=== PATIENT | male | born 1970 | race Caucasian/White ===

== ENCOUNTER 2019-08-01 19:48 | Emergency (ER) | payer MEDICAID ==
[~2019-08-01] VITALS: Ht 182.9 cm; Wt 64.5 kg
[~2019-08-01 19:48] MED LIST: NO HOME MEDS
[2019-08-01 19:58] VITALS: BP 128/68
[2019-08-01] MEDS ORDERED: ALBU8HFA PO (20:22)
[2019-08-01] MEDS ORDERED: BENZ-16 PO (20:22)
== END 2019-08-01 20:50 | disposition home or self-care (01) ==
LOC: ER 19:48
DX: J06.9 Acute upper respiratory infection, unspecified (principal); J45.909 Unspecified asthma, uncomplicated; F15.90 Other stimulant use, unspecified, uncomplicated; Z59.0 Homelessness; Z98.890 Other specified postprocedural states
CPT/HCPCS: 99283

== ENCOUNTER 2019-08-05 11:36 | Emergency (ER) | payer MEDICAID ==
[~2019-08-05] VITALS: Ht 182.9 cm; Wt 61.4 kg
[~2019-08-05 11:36] MED LIST changes: +ALBU8HFA PO; +BENZ-16 PO
[2019-08-05] MEDS ORDERED: DOXY100C77 PO (12:30)
[2019-08-05 12:36] VITALS: BP 114/70
== END 2019-08-05 12:45 | disposition home or self-care (01) ==
LOC: ER 11:36
DX: L03.012 Cellulitis of left finger (principal); J45.909 Unspecified asthma, uncomplicated; F15.90 Other stimulant use, unspecified, uncomplicated; Z98.890 Other specified postprocedural states; Z60.2 Problems related to living alone; Z59.0 Homelessness
CPT/HCPCS: 99283

== ENCOUNTER 2019-08-14 14:25 | Emergency (ER) | payer MEDICAID ==
[~2019-08-14] VITALS: Ht 185.4 cm; Wt 64.5 kg
[~2019-08-14 14:25] MED LIST changes: -BENZ-16 PO
--- NOTE | 2019-08-14 14:40 | NUR ---
pt walked from main ER to room 23 in overflow by JOSE FRANCISCO TORREZ and bre, without incident, pt cooperative
[2019-08-14] MEDS ORDERED: LORazepam 1 MG tablet PO ONE ×3 (15:00→20:25)
--- NOTE | 2019-08-14 15:09 | NUR ---
Patient sitting up in bed calmly no signs of repiratory distress
[2019-08-14 15:20] LABS: CLARITY,URINE CLOUDY (Clear); COLOR,URINE YELLOW (Yellow); GLUCOSE, URINE NEGATIVE (Neg); KETONES,URINE TRACE mg/dl (Neg); LEUKOCYTE ESTERASE ,URINE NEGATIVE (Neg); NITRITES, URINE NEGATIVE (Neg); OCCULT BLOOD,URINE TRACE-INTACT (Neg); PH,URINE 7.5 (4.8-8.0); PROTEIN,URINE 100 mg/dl (Neg)
[2019-08-14 15:27] LABS: UA COLLECTION TYPE CLN CATCH MIDSTREAM
[2019-08-14 15:28] LABS: MUCUS STRANDS FEW /LPF (Neg); SQUAMOUS EPITHELIAL CELL,UR FEW /LPF (FEW)
[2019-08-14 15:29] LABS: AMORPHOUS PHOSPHATES 3+; BACTERIA,URINE FEW /HPF (Neg); RBC,URINE 0-2 /HPF (0-2); SPERM MANY /HPF (NEGATIVE); WBC,URINE 0-4 /HPF (0-4)
[2019-08-14 15:35] LABS: URINE AMPHETAMINE SCREEN POSITIVE (Neg); URINE BARBITUATE SCREEN NEGATIVE (Neg); URINE BENZODIAZEPINES SCREEN NEGATIVE (Neg); URINE CANNABINOID SCREEN NEGATIVE (Neg); URINE COCAINE SCREEN NEGATIVE (Neg); URINE METHADONE SCREEN NEGATIVE (Neg); URINE OPIATE SCREEN NEGATIVE (Neg); URINE PHENCYCLIDINE SCREEN NEGATIVE (Neg)
--- NOTE | 2019-08-14 16:04 | NUR ---
Laying down relaxing in bed
[2019-08-14 16:13] LABS: BASOPHILS # (AUTO) 0.1 X10'3 (0-0.2); BASOPHILS % (AUTO) 0.4 % (0-1); EOSINOPHILS % (AUTO) 0.1 % (0-6); HEMATOCRIT 38.5 % (42.0-52.0); LYMPHOCYTES # (AUTO) 1.9 X10'3 (1.1-4.8); LYMPHOCYTES % (AUTO) 14.2 % (21-51); MEAN CORPUSCULAR HEMOGLOBIN 30.2 PG (27.0-31.0); MEAN CORPUSCULAR HGB CONC 33.8 g/dL (33.0-36.5); MEAN CORPUSCULAR VOLUME 89.2 FL (78-98); MEAN PLATELET VOLUME 7.4 FL (7.4-10.4); MONOCYTES % (AUTO) 7.6 % (2-12); NEUTROPHILS # (AUTO) 10.4 X10'3 (1.8-7.7); NEUTROPHILS % (AUTO) 77.7 % (42-75); PLATELET COUNT 383 X10'3 (140-440); RED BLOOD COUNT 4.31 X10'6 (4.70-6.10); RED CELL DISTRIBUTION WIDTH 13.9 % (11.5-14.5); WHITE BLOOD COUNT 13.4 X10'3 (4.5-11.0)
[2019-08-14 16:24] LABS: ALANINE AMINOTRANSFERASE 32 U/L (12-78); ALBUMIN 4.3 G/DL (3.4-5.0); ALBUMIN/GLOBULIN RATIO 1.3 (1.1-1.5); ALKALINE PHOSPHATASE 60 IU/L (46-116); ANION GAP 11 (8-16); ASPARTATE AMINO TRANSFERASE 24 U/L (10-37); BILIRUBIN,TOTAL 0.9 MG/DL (0.1-1.0); CALCIUM 9.4 MG/DL (8.5-10.1); CHLORIDE 105 MMOL/L (99-107); CREATININE 1.07 MG/DL (0.60-1.10); ETHANOL < 0.010 GM/DL (0.0-0.010); GLUCOSE 110 MG/DL (70-104); POTASSIUM 3.3 MMOL/L (3.5-5.1); SODIUM 139 MMOL/L (135-145); TOTAL CARBON DIOXIDE 22.8 MMOL/L (24-32); TOTAL PROTEIN 7.6 G/DL (6.4-8.2); eGFR 74 ML/MIN
[2019-08-14 16:39] LABS: BLOOD UREA NITROGEN 10 MG/DL (7-18); BUN/CREATININE RATIO 9.3 (5.4-32.0)
--- NOTE | 2019-08-14 17:03 | NUR ---
resting in bed
--- NOTE | 2019-08-14 17:59 | NUR ---
Laying in bed
--- NOTE | 2019-08-14 18:39 | NUR ---
pt packet faxed to [facility]
[2019-08-14] MEDS ORDERED: OLANZapine 2.5MG tablet PO SCH (18:50)
--- NOTE | 2019-08-14 18:51 | NUR ---
Patient is oriented to person, place, and time. He exhibits anxiety and some paranoia. He has poor eye contact and is mildly delusional. Patient fidgets with his bedding and responds to some sort of interal stimuli. Patient denies S/I or H/I. This headline writer spoke with Dr. Paz. Orders received for Ativan 1mg PO and Zyprexa 5mg PO now. Both orders may be repeated once PRN agation. Patient states he has consumed alcohol, meth, and has not slept for nearly 24 hours.
--- NOTE | 2019-08-14 19:09 | NUR ---
Patient is medication compliant. Patient wants to perch on the head board of the bed. The patient is told this is not allowed. Patient exhibits understanding. He stands at bedside.
--- NOTE | 2019-08-14 20:01 | NUR ---
Patient was evaluated by [facility]. Patient cooperated with [facility] practisioner.
[2019-08-14] MEDS ORDERED: OLANZapine 2.5MG tablet PO ONE (20:25)
[2019-08-14] MEDS ORDERED: LORazepam 2 mg/ml vial IM ONE (22:15)
[2019-08-14] MEDS ORDERED: haloperidol lactate 5mg/ml inj IM ONE (22:15)
[2019-08-14] MEDS ORDERED: diphenhydrAMINE 50 mg/ml inj IM ONE (22:15)
--- NOTE | 2019-08-14 22:32 | NUR ---
Patient was sitting on the floor moaning and rubbing his legs, he trembles and is not verbalizing with this production underwriter. Patient exhibiting psychotic behavior. This production underwriter consulted with Dr. Luna, orders recieved for Benadryl 50mg IM, Ativan 2mg IM, and Haldol 10mg IM. All were given, the patient did nod yes when informed about getting Rx medications. The patient was compliant with medication administration. Patient is now on the bed laying on his right side. Patient will be closely observed for medication effectiveness.
--- NOTE | 2019-08-14 23:27 | NUR ---
Patient is now asleep. He is breathing quietly. Patient is in direct view from the nurses station.
--- NOTE | 2019-08-15 01:11 | NUR ---
Patient has awoken once again. Patient is agitated and delusional. Patient climbs out of bed and has his eyes closed. Two rails are up. Bed is locked in low position. Patient is wearing non slip socks. Patient is re-directed back to bed. He remains restless. This marketing underwriter will consult with FELICE BUCHANAN,
[2019-08-15] MEDS ORDERED: haloperidol lactate 5mg/ml inj IM ONE (01:25)
--- NOTE | 2019-08-15 03:04 | NUR ---
Patient is sleeping quietly, in view from the nursing station.
--- NOTE | 2019-08-15 04:13 | NUR ---
Patient is sleeping quietly in a supine position. Color is good. Patient is warm and dry.
[2019-08-15] MEDS ORDERED: potassium Cl 20 mEq SR tablet PO STA (05:06)
--- NOTE | 2019-08-15 06:15 | NUR ---
Patient is sleeping respirations even and unlabored
--- NOTE | 2019-08-15 07:09 | NUR ---
sleeping on left side
--- NOTE | 2019-08-15 08:00 | NUR ---
sleeping on back
--- NOTE | 2019-08-15 09:21 | NUR ---
sleeping on back
--- NOTE | 2019-08-15 11:00 | NUR ---
asleep on left side
--- NOTE | 2019-08-15 12:25 | NUR ---
sleeping on left side
--- NOTE | 2019-08-15 13:22 | NUR ---
sleeping laying on back
--- NOTE | 2019-08-15 16:23 | NUR ---
asleep laying on right side
--- NOTE | 2019-08-15 17:01 | NUR ---
sleeping on back
--- NOTE | 2019-08-15 18:20 | NUR ---
sleeping on side
--- NOTE | 2019-08-15 18:26 | NUR ---
Patient is sleeping quietly, in view from the nursing station.
--- NOTE | 2019-08-15 21:25 | NUR ---
Patient is awake now, eating dinner. Patient is calm and cooperative. Patlients thought process is becoming linear. Patient states his left leg is directing itself outward. On exam this presents as a mild dystonic reaction. Dr. Mccracken was consulted about this probable extrapyramidal reaction. An order was received for cogentin 1mg IM. Tis was given after explaining the treatment to the patient. Patient was compliant with taking the medication.
[2019-08-15] MEDS ORDERED: benztropine 1 mg/ml 2ml ampule IM ONE (21:45)
--- NOTE | 2019-08-15 22:21 | NUR ---
Patient is now resting quietly, extraparamital reactions have subsided. Patient is returning to sleep.
--- NOTE | 2019-08-16 00:17 | NUR ---
Patient is sleeping quietly in a supine position.
--- NOTE | 2019-08-16 01:52 | NUR ---
Patient is sleeping quietly in a supine position. In view from the nursing station.
--- NOTE | 2019-08-16 08:11 | NUR ---
pt woke up for breakfast. ate breakfast no med ordered. ambulated to bathroom with steady gate. mood stable no out bursts this morning so far
--- NOTE | 2019-08-16 09:32 | NUR ---
in bed resting seen walking to bathroom
--- NOTE | 2019-08-16 11:42 | NUR ---
pt complaining of still having some extraparamital side effects and would like some more cogention talked to dr pineda he ordered benadril and if that does not help he will order the cogetion
[2019-08-16] MEDS ORDERED: diphenhydrAMINE 25mg capsule PO ONE (11:45)
--- NOTE | 2019-08-16 12:05 | NUR ---
[facility] called and said they would be down at 1330 to bring him up to the floor
[2019-08-16 13:39] VITALS: BP 108/69
== END 2019-08-16 14:09 | disposition home or self-care (01) ==
LOC: ER 14:25
DX: F15.959 Other stimulant use, unspecified with stimulant-induced psychotic disorder, unspecified (principal); Z98.890 Other specified postprocedural states; Z60.2 Problems related to living alone; Z59.0 Homelessness; Z79.899 Other long term (current) drug therapy
CPT/HCPCS: 36415; 80053; 80305; 80320; 81001; 85025; 96372; 99285; J0515; J1200; J1630; J2060; Q0163

== ENCOUNTER 2019-08-16 11:21 | Inpatient (IN) | payer MEDICAID ==
[~2019-08-16] VITALS: Ht 182.9 cm; Wt 57.6 kg
[2019-08-16 14:10] VITALS: BP 108/69
[2019-08-16] MEDS ORDERED: mag hydrox/Alum hydrox/simeth 30ml oral suspension PO PRN (14:25)
[2019-08-16] MEDS ORDERED: magnesium hydroxide 30ml (MOM) UD suspension PO PRN (14:25)
[2019-08-16] MEDS ORDERED: hydrOXYzine 25 MG tablet PO PRN (14:25)
[2019-08-16] MEDS ORDERED: acetaminophen 325mg tablet PO PRN ×2 (14:25)
[2019-08-16] MEDS ORDERED: loperamide 2mg capsule PO PRN (14:25)
--- NOTE | 2019-08-16 17:13 | NUR ---
ADMISSION NOTE: Patient arrived on unit at 1410 from [facility] admitted at DTS/DTO. Was brought in on 5150 after being observed to have extreme agitation and paranoia stating he could see people hiding and trying to kill him. Was trespassing at a business and throwing rocks towards windows. Patient was positive for Meth and states he only experiences these paranoid thoughts when on Meth. Presents on unit as calm and cooperative. Denies any hallucinations. Is significantly underweight.
[2019-08-16 19:00] VITALS: BP 108/67
[2019-08-16] MEDS ORDERED: benztropine 1mg tablet PO PRN (20:05)
[2019-08-16] MEDS: quetiapine 100mg tablet PO PRN (20:47)
--- NOTE | 2019-08-17 00:34 | NUR ---
Nursing Progress Note: Legal hold: 5150 Client on involuntary status for DTS/DTO Report received from nurse with use of SBAR: JOSE FRANCISCO Nielsen Why are they here: Patient admitted on a 5150 for DTS/DTO. He was brought in by police after being observed to exhibit bizarre behaviors, and attempting to trespass at businesses. Pt. had also armed himself with rocks, and appeared to have extreme agitation and paranoia stating he could see people hiding and trying to kill him. Patient has a history of Bipolar D/O and schizophrenia, and was positive for Meth. He reports he only experiences these paranoid thoughts when on Meth. Pt. is significantly underweight. Assessment What has happened this shift: Pt. laying in bed at the beginning of the shift, and continues to isolate here throughout the shift. This marketing underwriter introduces self, pt. presents as agitated regarding the behavior of his roommate, states, "Can I have a different room?! He's driving me crazy! If he comes on my side of the room one more time, I will knock him out!" Pt's roommate removed from the room for safety, and pt. provided earplugs to minimize external stimuli, he was able to be successfully redirected. Pt. later requested Cogentin r/t "Jaw and left foot locking." It was noted by this marketing underwriter that he had received Cogentin in the ER last night, and pt. reported that it was effective. Obtained PRN order from TAM Garcia for PRN Cogentin BID, administered with effectiveness. 1:1 completed at bedside, pt. is cooperative with assessment, however presents as guarded and denies all mental health s/s. Pt. does not appear to be internally preoccupied, and no delusional statements made. He requests PRN Seroquel at , will continue to monitor. S/I, H/I: Denies A/VH: Denies, does not appear internally preoccupied Sleep: Pt. appears fatigued, appears to be sleeping well ADL's: Requires some direction from staff Group attendance: N/A Were meds taken: Yes Any med S/E: None Mental Status Exam Appearance: Pt. presents as disheveled and cachetic, however appropriately dressed Eye contact: Good Behavior: Cooperative, slightly agitated, guarded, and isolative Speech: Soft and minimal, becomes louder when agitated Mood: Guarded Affect: Constricted Thought process: Poverty of thought Thought Content: Agitation with roommate at the beginning of the shift, however able to be redirected Cognition: A&O X4 Insight: Poor Judgment: Poor Interventions PRN's used: Cogentin and Seroquel Therapeutic interventions: Introduced self and established rapport, ensured contract for safety, maintained a safe and therapeutic environment, provided clear and simple instructions, provided active listening and redirection as needed, monitored behaviors and obtained order for PRN Cogentin, and maintained Q 15 min safety checks. Restraints/seclusion/emergency medication: N/A Justification of Continued Inpatient Treatment: Pt. requires interruption of current crisis, medication adjustments, and a safe and therapeutic environment.
[2019-08-17 07:30] VITALS: BP 108/63
[2019-08-17 08:00] VITALS: BP 108/65
[2019-08-17 08:29] LABS: CHOLESTEROL 123 MG/DL (0-200); HDL CHOLESTEROL 61 MG/DL (35-60); LDL CHOLESTEROL 52 MG/DL (50-100); TRIGLYCERIDES 51 MG/DL (20-135)
[2019-08-17 08:59] LABS: HEMOGLOBIN A1C 5.7 % (4.5-6.2)
--- NOTE | 2019-08-17 10:32 | NUR ---
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 PO 75-100% avg first meals. Meeting needs. No nutrition concerns at this time. Will continue to monitor. Addendum: 08/17/19 at [address] Amended: Links added.
--- NOTE | 2019-08-17 15:58 | NUR ---
Nursing Progress Note: Jasvir Legal hold: 5150 Client on involuntary status for DTS/DTO Report received from JOSE FRANCISCO Cannon with use of SBAR Why are they here: Patient admitted on a 5150 for DTS/DTO. He was brought in by police after being observed to exhibit bizarre behaviors, and attempting to trespass at businesses. Pt. had also armed himself with rocks, and appeared to have extreme agitation and paranoia stating he could see people hiding and trying to kill him. Patient has a history of Bipolar D/O and schizophrenia, and was positive for Meth. He reports he only experiences these paranoid thoughts when on Meth. Pt. is significantly underweight. Assessment What has happened this shift: Patient lying in bed, awake, calm. States once it was quiet on the unit he slept well. Denies SI, hallucinations. Remains isolative in room. No medications ordered, none requested. Remained in room all morning. Continues to deny any symptoms of paranoia. Does not appear anxious or agitated. Remains in room after lunch, resting quietly. Became slightly anxious over potential discharge as he would need to notify the mission in order to have a bed. Decision made for patient to remain for now. Only out of room when wanting information regarding discharged, remains isolative. S/I, H/I: Denies A/VH: Denies, does not appear internally preoccupied Sleep: 8 ADL's: Requires some direction from staff Group attendance: No organized groups due to COVID 19 Were meds taken: Yes Any med S/E: None Mental Status Exam Appearance: Pt. presents as disheveled and cachetic, however appropriately dressed Eye contact: Good Behavior: Cooperative, slightly agitated, guarded, and isolative Speech: Soft and minimal, becomes louder when agitated Mood: Guarded Affect: Constricted Thought process: Poverty of thought Thought Content: Agitation with roommate at the beginning of the shift, however able to be redirected Cognition: A&O X4 Insight: Poor Judgment: Poor Interventions PRN's used: Cogentin and Seroquel Therapeutic interventions: Introduced self and established rapport, ensured contract for safety, maintained a safe and therapeutic environment, provided clear and simple instructions, provided active listening and redirection as needed, monitored behaviors and maintained Q 15 min safety checks. Restraints/seclusion/emergency medication: N/A Justification of Continued Inpatient Treatment: Pt. requires interruption of current crisis, medication adjustments, and a safe and therapeutic environment.
[2019-08-17] MEDS ORDERED: diphenhydrAMINE 25mg capsule PO PRN (18:45)
[2019-08-17 20:00] VITALS: BP 102/58
--- NOTE | 2019-08-17 23:30 | NUR ---
Nursing Progress Note: Jasvir Legal hold: 5150 Client on involuntary status for DTS/DTO Report received from JOSE FRANCISCO Nielsen with use of SBAR Why are they here: Patient admitted on a 5150 for DTS/DTO. He was brought in by police after being observed to exhibit bizarre behaviors, and attempting to trespass at businesses. Pt. had also armed himself with rocks, and appeared to have extreme agitation and paranoia stating he could see people hiding and trying to kill him. Patient has a history of Bipolar D/O and schizophrenia, and was positive for Meth. He reports he only experiences these paranoid thoughts when on Meth. Pt. is significantly underweight. Assessment What has happened this shift: Patient asleep at the start of the shift. Pt denies SI/HI and AH/VH. Pt did not get up for snack and has no medication ordered. Pt asked if he could return to sleep. S/I, H/I: Denies A/VH: Denies, does not appear internally preoccupied Sleep: 8 ADL's: Requires some direction from staff Group attendance: No organized groups due to COVID 19 Were meds taken: Any med S/E: None Mental Status Exam Appearance: Pt. presents as disheveled and cachetic, however appropriately dressed Eye contact: Good Behavior: Cooperative, slightly agitated, guarded, and isolative Speech: Soft and minimal, becomes louder when agitated Mood: Guarded Affect: Constricted Thought process: Poverty of thought Thought Content: Agitation with roommate at the beginning of the shift, however able to be redirected Cognition: A&O X4 Insight: Poor Judgment: Poor Interventions PRN's used: none Therapeutic interventions: Introduced self and established rapport, ensured contract for safety, maintained a safe and therapeutic environment, provided clear and simple instructions, provided active listening and redirection as needed, monitored behaviors and maintained Q 15 min safety checks. Restraints/seclusion/emergency medication: N/A Justification of Continued Inpatient Treatment: Pt. requires interruption of current crisis, medication adjustments, and a safe and therapeutic environment. Addendum: 08/18/19 at 0021 by Chris Sinha RN JAMES Shahid @ 0020
[2019-08-18] MEDS: quetiapine 100mg tablet PO PRN ×2 (00:19→09:54)
[2019-08-18 08:00] VITALS: BP 112/63
--- NOTE | 2019-08-18 12:08 | NUR ---
Discharge Note: Patient denies paranoia and suicidal ideation. Patient states it's the meth that makes him "like that." Patient received discharge instructions and verbalized understanding but refused to receive a copy of them. Patient did not need tobacco replacement. Patient does not have any wounds. Patient was here for less than 3 days and does not need a repeat MRSA. Patient was very happy to leave and does not want to take medication and stated he was going to continue to do meth. Patient ambulatory, steady gait downstairs to Main Lobby with [employer] [facility]. Patient has all his belongings. Patient taking a taxi on [facility] to [facility].
== END 2019-08-18 12:10 | disposition short-term general hospital (02) | DRG 776 ==
LOC: ADULT MH 11:21
PROVIDERS: ADMIT Psychiatry & Neurology Psychiatry; ATTEND Psychiatry & Neurology Psychiatry
DX: F15.959 Other stimulant use, unspecified with stimulant-induced psychotic disorder, unspecified (principal); F39 Unspecified mood [affective] disorder; J45.909 Unspecified asthma, uncomplicated; Z59.0 Homelessness; Z87.11 Personal history of peptic ulcer disease; Z90.49 Acquired absence of other specified parts of digestive tract; Z71.51 Drug abuse counseling and surveillance of drug abuser
CPT/HCPCS: 36415; 80061; 83036; 87081; 99285

== ENCOUNTER 2019-08-20 17:20 | Emergency (ER) | payer MEDICAID ==
[~2019-08-20] VITALS: Ht 182.9 cm; Wt 60.0 kg
[2019-08-20 17:21] VITALS: BP 133/87
[2019-08-20] MEDS ORDERED: ALBU18HF2 INH (17:53)
== END 2019-08-20 18:19 | disposition home or self-care (01) ==
LOC: ER 17:20
DX: J45.901 Unspecified asthma with (acute) exacerbation (principal); F15.90 Other stimulant use, unspecified, uncomplicated; Z98.890 Other specified postprocedural states; Z59.0 Homelessness
CPT/HCPCS: 99283

== ENCOUNTER 2019-11-07 11:37 | Emergency (ER) | payer MEDICAID ==
[~2019-11-07] VITALS: Ht 182.9 cm; Wt 63.6 kg
[~2019-11-07 11:37] MED LIST changes: +ALBU18HF2 INH; -ALBU8HFA PO; -NO HOME MEDS
[2019-11-07] MEDS ORDERED: diphenhydrAMINE 50 mg/ml inj IM ONE (12:00)
[2019-11-07] MEDS ORDERED: haloperidol lactate 5mg/ml inj IM ONE (12:00)
[2019-11-07] MEDS ORDERED: LORazepam 2 mg/ml vial IM ONE (12:00)
[2019-11-07] MEDS ORDERED: normal saline 1000ML IV soln IVB ONE ×2 (12:05→13:55)
--- NOTE | 2019-11-07 12:10 | NUR ---
[employer] offices Ramana (#[id number]) and Odalis (#[id number]) transported pt from [facility], where 5150 was written. Covid being sought d/t high risk area w/ high possible exposure to Covid positive pts, has low grade fever and RLL rhales. GUILHERME Willett will contact Infectious Jennifer Tipton.
--- NOTE | 2019-11-07 12:30 | NUR ---
[facility] staff exposed to pt include: Security (Asa Santizo,Patrice, Eduardo), ED (Jhoana Cid, Analy), Lab (Rylee)
[2019-11-07 12:46] LABS: BASOPHILS % (AUTO) 0.3 % (0-1); EOSINOPHILS % (AUTO) 0 % (0-6); HEMATOCRIT 35.4 % (42.0-52.0); HEMOGLOBIN 11.9 g/dl (14.0-17.9); LYMPHOCYTES # (AUTO) 0.8 X10'3 (1.1-4.8); LYMPHOCYTES % (AUTO) 6.6 % (21-51); MEAN CORPUSCULAR HEMOGLOBIN 30.5 PG (27.0-31.0); MEAN CORPUSCULAR HGB CONC 33.5 g/dL (33.0-36.5); MEAN PLATELET VOLUME 7.6 FL (7.4-10.4); MONOCYTES # (AUTO) 0.8 X10'3 (0-0.9); MONOCYTES % (AUTO) 6.8 % (2-12); NEUTROPHILS # (AUTO) 9.9 X10'3 (1.8-7.7); NEUTROPHILS % (AUTO) 86.3 % (42-75); PLATELET COUNT 356 X10'3 (140-440); RED BLOOD COUNT 3.89 X10'6 (4.70-6.10); RED CELL DISTRIBUTION WIDTH 14.2 % (11.5-14.5); WHITE BLOOD COUNT 11.5 X10'3 (4.5-11.0)
[2019-11-07 13:06] LABS: ALANINE AMINOTRANSFERASE 45 U/L (12-78); ALBUMIN 4.3 G/DL (3.4-5.0); ALBUMIN/GLOBULIN RATIO 1.2 (1.1-1.5); ALKALINE PHOSPHATASE 86 IU/L (46-116); ANION GAP 12 (8-16); ASPARTATE AMINO TRANSFERASE 27 U/L (10-37); BILIRUBIN,TOTAL 0.3 MG/DL (0.1-1.0); BLOOD UREA NITROGEN 15 MG/DL (7-18); BUN/CREATININE RATIO 10.6 (5.4-32.0); CALCIUM 8.9 MG/DL (8.5-10.1); CHLORIDE 108 MMOL/L (99-107); CREATININE 1.41 MG/DL (0.60-1.10); GLUCOSE 123 MG/DL (70-104); POTASSIUM 3.5 MMOL/L (3.5-5.1); SODIUM 144 MMOL/L (135-145); TOTAL CARBON DIOXIDE 23.9 MMOL/L (24-32); TOTAL PROTEIN 7.9 G/DL (6.4-8.2); eGFR 54 ML/MIN
[2019-11-07 13:16] LABS: CKMB RELATIVE INDEX 0.8 RATIO (0-2.5); CREATINE KINASE 492 U/L (39-308)
[2019-11-07 13:28] LABS: ETHANOL < 0.010 GM/DL (0.0-0.010)
[2019-11-07 14:14] LABS: CLARITY,URINE CLEAR (Clear); COLOR,URINE YELLOW (Yellow); GLUCOSE, URINE NEGATIVE (Neg); KETONES,URINE NEGATIVE (Neg); LEUKOCYTE ESTERASE ,URINE NEGATIVE (Neg); NITRITES, URINE NEGATIVE (Neg); OCCULT BLOOD,URINE TRACE-INTACT (Neg); PH,URINE 6.5 (4.8-8.0); PROTEIN,URINE 30 mg/dl (Neg); UROBILINOGEN,URINE 0.2 E.U/dL (0.2-1.0)
[2019-11-07 14:18] LABS: UA COLLECTION TYPE URINAL
[2019-11-07 14:19] LABS: BACTERIA,URINE NONE SEEN /HPF (Neg); MUCUS STRANDS FEW /LPF (Neg); RBC,URINE 0-2 /HPF (0-2); SPERM MODERATE /HPF (NEGATIVE); SQUAMOUS EPITHELIAL CELL,UR NONE SEEN /LPF (FEW); WBC,URINE 0-4 /HPF (0-4)
--- NOTE | 2019-11-07 14:28 | NUR ---
Partial restraint removal: LUE and RLE released.
[2019-11-07 14:36] LABS: URINE AMPHETAMINE SCREEN POSITIVE (Neg); URINE BARBITUATE SCREEN POSITIVE (Neg); URINE BENZODIAZEPINES SCREEN NEGATIVE (Neg); URINE CANNABINOID SCREEN NEGATIVE (Neg); URINE COCAINE SCREEN NEGATIVE (Neg); URINE METHADONE SCREEN NEGATIVE (Neg); URINE OPIATE SCREEN NEGATIVE (Neg); URINE PHENCYCLIDINE SCREEN NEGATIVE (Neg)
--- NOTE | 2019-11-07 15:14 | NUR ---
balance of soft restraints removed: RUE and LLE as pt able to follow instructions and has been calm. pt resting quietly reports "feeling better and not hearing things as much."
--- NOTE | 2019-11-07 18:47 | NUR ---
IV d/c and noticed he has skin abrasions to his right wrist/forearm area. 3cm x 1 cm area covered with bacitracin and a 2x2 and coban and a smaller one about 1cm x 1/2 cm, placed bacitracin and a bandaide on that one. The pt is AOx4. He said he feels way better. He got up and out of bed and ambulated to overflow without any problems. He wore his mask. I informed him that his covid test came back negative but he has to wear the mask to protect himself. He understood.
--- NOTE | 2019-11-07 18:54 | NUR ---
pt moved to bed 26 in overflow.
[2019-11-07] MEDS ORDERED: MIRT45TA79 PO (19:14)
--- NOTE | 2019-11-07 19:49 | NUR ---
pt is being evaluated by [facility]
--- NOTE | 2019-11-07 22:11 | NUR ---
Pt is sleeping, no s/s of distress noted.
--- NOTE | 2019-11-08 02:43 | NUR ---
Pt is sleeping, no s/s of distress noted.
--- NOTE | 2019-11-08 07:00 | NUR ---
asleep no resp issues
--- NOTE | 2019-11-08 08:00 | NUR ---
asleep no resp issues
--- NOTE | 2019-11-08 09:01 | NUR ---
resting in bed
--- NOTE | 2019-11-08 10:00 | NUR ---
asleep no resp issues
--- NOTE | 2019-11-08 12:04 | NUR ---
asleep no resp issues
--- NOTE | 2019-11-08 13:12 | NUR ---
relieving RN for break, pt is resting quietly on gurney
--- NOTE | 2019-11-08 13:25 | NUR ---
sitting on side of bed
--- NOTE | 2019-11-08 14:00 | NUR ---
sleeping no resp distress
--- NOTE | 2019-11-08 16:04 | NUR ---
resting in bed
[2019-11-08 16:26] VITALS: BP 130/64
[2019-11-08] MEDS ORDERED: mirtazapine 15mg tablet PO SCH (21:00)
== END 2019-11-08 16:47 | disposition home or self-care (01) ==
LOC: ER 11:37
DX: F29 Unspecified psychosis not due to a substance or known physiological condition (principal); R41.0 Disorientation, unspecified; E87.2 Acidosis; N28.9 Disorder of kidney and ureter, unspecified; F15.10 Other stimulant abuse, uncomplicated; J45.909 Unspecified asthma, uncomplicated; Z98.890 Other specified postprocedural states; Z60.2 Problems related to living alone; Z59.0 Homelessness; Z79.899 Other long term (current) drug therapy
CPT/HCPCS: 36415; 70450; 71045; 80053; 80305; 80320; 81001; 82550; 82553; 83605; 84145; 84443; 85025; 87040; 87635; 93005; 96360; 96361; 96372; 99285; C9803; J1200; J1630; J2060; J7030

== ENCOUNTER 2019-12-04 21:01 | Emergency (ER) | payer MEDICAID ==
[~2019-12-04] VITALS: Ht 182.9 cm; Wt 64.5 kg
[~2019-12-04 21:01] MED LIST changes: -ALBU18HF2 INH; +MIRT45TA79 PO
[2019-12-04 21:55] LABS: BASOPHILS % (AUTO) 0.4 % (0-1); EOSINOPHILS % (AUTO) 0.1 % (0-6); HEMATOCRIT 36.5 % (42.0-52.0); HEMOGLOBIN 12.5 g/dl (14.0-17.9); LYMPHOCYTES # (AUTO) 1.8 X10'3 (1.1-4.8); LYMPHOCYTES % (AUTO) 18.1 % (21-51); MEAN CORPUSCULAR HEMOGLOBIN 31.2 PG (27.0-31.0); MEAN CORPUSCULAR HGB CONC 34.2 g/dL (33.0-36.5); MEAN CORPUSCULAR VOLUME 91.2 FL (78-98); MEAN PLATELET VOLUME 7.8 FL (7.4-10.4); MONOCYTES % (AUTO) 9.7 % (2-12); NEUTROPHILS % (AUTO) 71.7 % (42-75); PLATELET COUNT 364 X10'3 (140-440); RED BLOOD COUNT 4.01 X10'6 (4.70-6.10); RED CELL DISTRIBUTION WIDTH 13.5 % (11.5-14.5); WHITE BLOOD COUNT 9.8 X10'3 (4.5-11.0)
[2019-12-04 22:07] LABS: ALANINE AMINOTRANSFERASE 32 U/L (12-78); ALBUMIN 4.3 G/DL (3.4-5.0); ALBUMIN/GLOBULIN RATIO 1.2 (1.1-1.5); ALKALINE PHOSPHATASE 89 IU/L (46-116); ANION GAP 13 (8-16); ASPARTATE AMINO TRANSFERASE 20 U/L (10-37); BILIRUBIN,TOTAL 0.4 MG/DL (0.1-1.0); BLOOD UREA NITROGEN 13 MG/DL (7-18); BUN/CREATININE RATIO 12.3 (5.4-32.0); CHLORIDE 104 MMOL/L (99-107); CREATININE 1.06 MG/DL (0.60-1.10); GLUCOSE 131 MG/DL (70-104); POTASSIUM 3.6 MMOL/L (3.5-5.1); SODIUM 141 MMOL/L (135-145); TOTAL CARBON DIOXIDE 24.4 MMOL/L (24-32); eGFR 75 ML/MIN
[2019-12-04 22:09] LABS: ETHANOL < 0.010 GM/DL (0.0-0.010)
[2019-12-04 22:12] LABS: URINE AMPHETAMINE SCREEN POSITIVE (Neg); URINE BARBITUATE SCREEN NEGATIVE (Neg); URINE BENZODIAZEPINES SCREEN NEGATIVE (Neg); URINE CANNABINOID SCREEN NEGATIVE (Neg); URINE COCAINE SCREEN NEGATIVE (Neg); URINE METHADONE SCREEN NEGATIVE (Neg); URINE OPIATE SCREEN NEGATIVE (Neg); URINE PHENCYCLIDINE SCREEN NEGATIVE (Neg)
[2019-12-04] MEDS ORDERED: MIRT45TA83 PO (22:41)
[2019-12-04] MEDS ORDERED: SERT-153 PO (22:42)
--- NOTE | 2019-12-04 23:07 | NUR ---
pt moved to overflow bed 22. pt was able to ambulate independently with a steady gait.
--- NOTE | 2019-12-05 01:09 | NUR ---
pt is lying in bed staring at the ceiling. no needs at this time
--- NOTE | 2019-12-05 02:40 | NUR ---
pt continues to lie in bed staring at the ceiling. pt appears paranoid
--- NOTE | 2019-12-05 03:24 | NUR ---
pt is sitting on the floor in the corner by his bed. when asked if he is alright, pt responded "I'm just bored." Pt denies any complaints.
--- NOTE | 2019-12-05 04:51 | NUR ---
Pt is sitting on his bed now, eyes open. pt denies having any complaints.
[2019-12-05] MEDS ORDERED: sertraline 50mg tablet PO SCH (08:00)
--- NOTE | 2019-12-05 09:00 | NUR ---
resting in bed
--- NOTE | 2019-12-05 10:00 | NUR ---
getting ready for DC
[2019-12-05 10:14] VITALS: BP 144/98
[2019-12-05] MEDS ORDERED: mirtazapine 15mg tablet PO SCH (21:00)
== END 2019-12-05 10:17 | disposition home or self-care (01) ==
LOC: ER 21:02
DX: R45.851 Suicidal ideations (principal); F15.10 Other stimulant abuse, uncomplicated; J45.909 Unspecified asthma, uncomplicated; F32.9 Major depressive disorder, single episode, unspecified; Z98.890 Other specified postprocedural states; Z59.0 Homelessness; Z60.2 Problems related to living alone; Z72.89 Other problems related to lifestyle; Z79.899 Other long term (current) drug therapy
CPT/HCPCS: 36415; 80053; 80305; 80320; 85025; 99285

== ENCOUNTER 2019-12-13 10:52 | Observation (INO) | payer MEDICAID ==
[~2019-12-13] VITALS: Ht 182.9 cm; Wt 64.5 kg
[~2019-12-13 10:52] MED LIST changes: -MIRT45TA79 PO; +MIRT45TA83 PO; +SERT-153 PO
[2019-12-13 11:30] LABS: BASOPHILS % (AUTO) 0.3 % (0-1); EOSINOPHILS % (AUTO) 0.1 % (0-6); HEMATOCRIT 35.2 % (42.0-52.0); HEMOGLOBIN 12.1 g/dl (14.0-17.9); MEAN CORPUSCULAR HEMOGLOBIN 30.6 PG (27.0-31.0); MEAN CORPUSCULAR HGB CONC 34.3 g/dL (33.0-36.5); MEAN CORPUSCULAR VOLUME 89.1 FL (78-98); MEAN PLATELET VOLUME 7.6 FL (7.4-10.4); MONOCYTES # (AUTO) 1.2 X10'3 (0-0.9); MONOCYTES % (AUTO) 10.4 % (2-12); NEUTROPHILS # (AUTO) 8.4 X10'3 (1.8-7.7); NEUTROPHILS % (AUTO) 72.2 % (42-75); PLATELET COUNT 349 X10'3 (140-440); RED BLOOD COUNT 3.95 X10'6 (4.70-6.10); RED CELL DISTRIBUTION WIDTH 13.4 % (11.5-14.5); WHITE BLOOD COUNT 11.7 X10'3 (4.5-11.0)
[2019-12-13 11:50] LABS: ALANINE AMINOTRANSFERASE 38 U/L (12-78); ALBUMIN/GLOBULIN RATIO 1.3 (1.1-1.5); ALKALINE PHOSPHATASE 79 IU/L (46-116); ANION GAP 19 (8-16); ASPARTATE AMINO TRANSFERASE 45 U/L (10-37); BILIRUBIN,TOTAL 1.1 MG/DL (0.1-1.0); BLOOD UREA NITROGEN 28 MG/DL (7-18); BUN/CREATININE RATIO 15.6 (5.4-32.0); CALCIUM 9.6 MG/DL (8.5-10.1); CHLORIDE 98 MMOL/L (99-107); CREATININE 1.79 MG/DL (0.60-1.10); GLUCOSE 89 MG/DL (70-104); POTASSIUM 3.1 MMOL/L (3.5-5.1); SODIUM 134 MMOL/L (135-145); TOTAL CARBON DIOXIDE 16.6 MMOL/L (24-32); eGFR 41 ML/MIN
[2019-12-13] MEDS ORDERED: normal saline 1000ML IV soln IVB ONE ×2 (12:50→14:15)
[2019-12-13] MEDS ORDERED: potassium Cl 20 mEq SR tablet PO STA (12:50)
[2019-12-13] MEDS: normal saline 1000ml 1,000 ML IV SCH ×2 (14:29→23:30)
[2019-12-13] MEDS ORDERED: ondansetron/PF 4mg/2ml inj IV PRN (14:30)
[2019-12-13] MEDS ORDERED: potassium CL 10mEq/100ml bag 100 ML IV PRN ×2 (14:30)
[2019-12-13] MEDS ORDERED: morphine 2 MG/ML inj. syringe IV PRN (14:30)
[2019-12-13] MEDS ORDERED: acetaminophen 325mg tablet PO PRN (14:30)
[2019-12-13] MEDS ORDERED: magnesium 2GM in 50ml NS 50 ML IV PRN (14:30)
[2019-12-13] MEDS ORDERED: magnesium Cl slow-release 64mg tablet PO PRN (14:30)
[2019-12-13] MEDS ORDERED: HYDROcodone/acetaminophen 5mg/325mg tablet PO PRN (14:30)
[2019-12-13] MEDS ORDERED: docusate sod 100mg capsule PO PRN (14:30)
[2019-12-13] MEDS ORDERED: potassium Cl 20 mEq SR tablet PO PRN ×2 (14:30)
[2019-12-13] MEDS ORDERED: magnesium 4gm in 100ml NS 100 ML IV PRN (14:30)
[2019-12-13 15:15] LABS: CREATINE KINASE 1361 U/L (39-308)
[2019-12-13 15:45] VITALS: BP 109/58
[2019-12-13 18:00] VITALS: BP 98/54
--- NOTE | 2019-12-13 18:34 | NUR ---
Patient in room ORTHO 4011. I have received report from Ciara FELTON and had the opportunity to ask questions and assume patient care.
[2019-12-13] MEDS: K and/or MAG REPLACEMENT MC SCH (20:00)
--- NOTE | 2019-12-13 20:00 | NUR ---
Patient refused to comply with orthostatic vitals. Addendum: 12/14/19 at 0030 by Daisy Steele RN Amended: Links added.
[2019-12-13] MEDS: heparin, porcine 5000 units/ml vial SQ SCH (20:33)
[2019-12-13] MEDS ORDERED: temazepam 15mg capsule PO PRN (21:00)
[2019-12-13 21:31] LABS: URINE AMPHETAMINE SCREEN POSITIVE (Neg); URINE BARBITUATE SCREEN NEGATIVE (Neg); URINE BENZODIAZEPINES SCREEN NEGATIVE (Neg); URINE CANNABINOID SCREEN NEGATIVE (Neg); URINE COCAINE SCREEN NEGATIVE (Neg); URINE METHADONE SCREEN NEGATIVE (Neg); URINE OPIATE SCREEN NEGATIVE (Neg); URINE PHENCYCLIDINE SCREEN NEGATIVE (Neg)
[2019-12-13 21:38] LABS: CLARITY,URINE SLIGHTLY CLOUDY (Clear); COLOR,URINE YELLOW (Yellow); GLUCOSE, URINE NEGATIVE (Neg); KETONES,URINE 15 mg/dl (Neg); LEUKOCYTE ESTERASE ,URINE NEGATIVE (Neg); NITRITES, URINE NEGATIVE (Neg); OCCULT BLOOD,URINE SMALL (Neg); PROTEIN,URINE NEGATIVE (Neg); UA COLLECTION TYPE CLN CATCH MIDSTREAM; UROBILINOGEN,URINE 0.2 E.U/dL (0.2-1.0)
[2019-12-13 22:15] LABS: BACTERIA,URINE NONE SEEN /HPF (Neg); MUCUS STRANDS FEW /LPF (Neg); SQUAMOUS EPITHELIAL CELL,UR FEW /LPF (FEW); WBC,URINE 0-4 /HPF (0-4)
[2019-12-13 22:16] LABS: AMORPHOUS URATES 1+
--- NOTE | 2019-12-13 23:44 | NUR ---
Patient refused 2200 vitals
[2019-12-14] MEDS: normal saline 1000ml 1,000 ML IV SCH (03:49)
[2019-12-14 06:00] VITALS: BP 118/72
--- NOTE | 2019-12-14 06:34 | NUR ---
Problems reprioritized. Patient report given, questions answered & plan of care reviewed with Jackie Nichols.
[2019-12-14 06:35] LABS: BASOPHILS % (AUTO) 0.4 % (0-1); EOSINOPHILS # (AUTO) 0.1 X10'3 (0-0.9); EOSINOPHILS % (AUTO) 1.2 % (0-6); HEMATOCRIT 32.7 % (42.0-52.0); HEMOGLOBIN 11.3 g/dl (14.0-17.9); LYMPHOCYTES # (AUTO) 1.8 X10'3 (1.1-4.8); LYMPHOCYTES % (AUTO) 28.6 % (21-51); MEAN CORPUSCULAR HEMOGLOBIN 31.2 PG (27.0-31.0); MEAN CORPUSCULAR HGB CONC 34.7 g/dL (33.0-36.5); MEAN PLATELET VOLUME 7.9 FL (7.4-10.4); MONOCYTES # (AUTO) 0.8 X10'3 (0-0.9); MONOCYTES % (AUTO) 11.7 % (2-12); NEUTROPHILS # (AUTO) 3.7 X10'3 (1.8-7.7); NEUTROPHILS % (AUTO) 58.1 % (42-75); PLATELET COUNT 290 X10'3 (140-440); RED BLOOD COUNT 3.63 X10'6 (4.70-6.10); RED CELL DISTRIBUTION WIDTH 13.5 % (11.5-14.5); WHITE BLOOD COUNT 6.4 X10'3 (4.5-11.0)
[2019-12-14 06:42] LABS: ALANINE AMINOTRANSFERASE 34 U/L (12-78); ALBUMIN 2.9 G/DL (3.4-5.0); ALBUMIN/GLOBULIN RATIO 1.1 (1.1-1.5); ALKALINE PHOSPHATASE 64 IU/L (46-116); ANION GAP 11 (8-16); ASPARTATE AMINO TRANSFERASE 33 U/L (10-37); BILIRUBIN,TOTAL 0.5 MG/DL (0.1-1.0); BLOOD UREA NITROGEN 13 MG/DL (7-18); BUN/CREATININE RATIO 16.7 (5.4-32.0); CALCIUM 7.9 MG/DL (8.5-10.1); CHLORIDE 107 MMOL/L (99-107); CREATININE 0.78 MG/DL (0.60-1.10); GLUCOSE 83 MG/DL (70-104); MAGNESIUM 2.1 MG/DL (1.5-2.4); POTASSIUM 3.5 MMOL/L (3.5-5.1); SODIUM 140 MMOL/L (135-145); TOTAL CARBON DIOXIDE 22.2 MMOL/L (24-32); TOTAL PROTEIN 5.6 G/DL (6.4-8.2); eGFR > 90 ML/MIN
[2019-12-14] MEDS: K and/or MAG REPLACEMENT MC SCH (08:00)
[2019-12-14] MEDS: heparin, porcine 5000 units/ml vial SQ SCH (08:00)
[2019-12-14 10:00] VITALS: BP 107/63
--- NOTE | 2019-12-14 17:18 | NUR ---
PAGER ID: [phone] MESSAGE: [id number] TOM ASKING IF HE DC OR STAYING? [id number] MANDEEP
[2019-12-14 18:00] VITALS: BP 107/66
--- NOTE | 2019-12-14 18:10 | NUR ---
Patient in room ORTHO 4011. I have received report from JOSE FRANCICSO Mejia and had the opportunity to ask questions and assume patient care.
--- NOTE | 2019-12-14 18:25 | NUR ---
Report to Marielos FELTON
--- NOTE | 2019-12-14 19:45 | NUR ---
Removed IV, discharged instructions given, pt taken by WC to lobby, picked up by taxi.
== END 2019-12-14 19:45 | disposition home or self-care (01) ==
LOC: ER 10:52 → ED HOLD 14:29 → ORTHO 4S 15:38
PROVIDERS: ADMIT Internal Medicine; ATTEND Internal Medicine
DX: G92 Toxic encephalopathy (principal); R55 Syncope and collapse; N17.9 Acute kidney failure, unspecified; E86.0 Dehydration; F15.90 Other stimulant use, unspecified, uncomplicated; F41.9 Anxiety disorder, unspecified; J45.909 Unspecified asthma, uncomplicated; F32.9 Major depressive disorder, single episode, unspecified; Z79.899 Other long term (current) drug therapy
CPT/HCPCS: 36415; 70450; 71045; 80053; 80305; 81001; 82550; 83605; 83735; 83880; 84484; 85025; 87040; 87081; 93005; 96360; 96361; 96372; 99285; G0378; J1644; J7030

== ENCOUNTER 2019-12-26 17:06 | Emergency (ER) | payer MEDICAID ==
[~2019-12-26] VITALS: Ht 182.9 cm; Wt 63.6 kg
[2019-12-26 18:32] LABS: CLARITY,URINE CLEAR (Clear); COLOR,URINE YELLOW (Yellow); GLUCOSE, URINE NEGATIVE (Neg); KETONES,URINE NEGATIVE (Neg); LEUKOCYTE ESTERASE ,URINE NEGATIVE (Neg); NITRITES, URINE NEGATIVE (Neg); OCCULT BLOOD,URINE TRACE-INTACT (Neg); PROTEIN,URINE NEGATIVE (Neg); UA COLLECTION TYPE CLN CATCH MIDSTREAM; UROBILINOGEN,URINE 0.2 E.U/dL (0.2-1.0)
[2019-12-26 18:44] LABS: BACTERIA,URINE NONE SEEN /HPF (Neg); MUCUS STRANDS FEW /LPF (Neg); SQUAMOUS EPITHELIAL CELL,UR FEW /LPF (FEW); URINE AMPHETAMINE SCREEN POSITIVE (Neg); URINE BARBITUATE SCREEN NEGATIVE (Neg); URINE BENZODIAZEPINES SCREEN NEGATIVE (Neg); URINE CANNABINOID SCREEN NEGATIVE (Neg); URINE COCAINE SCREEN NEGATIVE (Neg); URINE METHADONE SCREEN NEGATIVE (Neg); URINE OPIATE SCREEN NEGATIVE (Neg); URINE PHENCYCLIDINE SCREEN NEGATIVE (Neg); WBC,URINE 0-4 /HPF (0-4)
[2019-12-26 19:37] LABS: ALANINE AMINOTRANSFERASE 31 U/L (12-78); ALBUMIN 4.2 G/DL (3.4-5.0); ALBUMIN/GLOBULIN RATIO 1.1 (1.1-1.5); ALKALINE PHOSPHATASE 80 IU/L (46-116); ANION GAP 9 (8-16); ASPARTATE AMINO TRANSFERASE 15 U/L (10-37); BILIRUBIN,TOTAL 0.5 MG/DL (0.1-1.0); BLOOD UREA NITROGEN 21 MG/DL (7-18); BUN/CREATININE RATIO 23.1 (5.4-32.0); CALCIUM 9.6 MG/DL (8.5-10.1); CHLORIDE 104 MMOL/L (99-107); CREATININE 0.91 MG/DL (0.60-1.10); GLUCOSE 96 MG/DL (70-104); POTASSIUM 3.6 MMOL/L (3.5-5.1); SODIUM 141 MMOL/L (135-145); TOTAL CARBON DIOXIDE 28.3 MMOL/L (24-32); TOTAL PROTEIN 7.9 G/DL (6.4-8.2); eGFR 89 ML/MIN
[2019-12-26 19:40] LABS: BASOPHILS # (AUTO) 0.1 X10'3 (0-0.2); BASOPHILS % (AUTO) 0.6 % (0-1); EOSINOPHILS % (AUTO) 0.4 % (0-6); ETHANOL < 0.010 GM/DL (0.0-0.010); HEMATOCRIT 38.4 % (42.0-52.0); HEMOGLOBIN 12.8 g/dl (14.0-17.9); LYMPHOCYTES # (AUTO) 2.4 X10'3 (1.1-4.8); LYMPHOCYTES % (AUTO) 25.5 % (21-51); MEAN CORPUSCULAR HEMOGLOBIN 30.3 PG (27.0-31.0); MEAN CORPUSCULAR HGB CONC 33.4 g/dL (33.0-36.5); MEAN CORPUSCULAR VOLUME 90.7 FL (78-98); MEAN PLATELET VOLUME 7.5 FL (7.4-10.4); MONOCYTES # (AUTO) 0.8 X10'3 (0-0.9); MONOCYTES % (AUTO) 8.7 % (2-12); NEUTROPHILS # (AUTO) 6.1 X10'3 (1.8-7.7); NEUTROPHILS % (AUTO) 64.8 % (42-75); PLATELET COUNT 406 X10'3 (140-440); RED BLOOD COUNT 4.23 X10'6 (4.70-6.10); RED CELL DISTRIBUTION WIDTH 14.1 % (11.5-14.5); WHITE BLOOD COUNT 9.4 X10'3 (4.5-11.0)
[2019-12-26] MEDS: mirtazapine 15mg tablet PO SCH (21:00)
--- NOTE | 2019-12-26 21:20 | NUR ---
[facility] mental health RN at bedside evaluating pt.
--- NOTE | 2019-12-27 06:30 | NUR ---
Pt sleeping on left side.
[2019-12-27] MEDS: sertraline 50mg tablet PO SCH (08:11)
--- NOTE | 2019-12-27 08:30 | NUR ---
Pt woke up and ate breakfast. Took his zoloft.
--- NOTE | 2019-12-27 10:30 | NUR ---
Pt back to sleep on left side.
--- NOTE | 2019-12-27 12:30 | NUR ---
Sitting up in bed, no s/s of distress noted.
--- NOTE | 2019-12-27 14:30 | NUR ---
Pt continues sleeping. Only wakes up to eat meals.
--- NOTE | 2019-12-27 16:30 | NUR ---
Pt is still asleep. No distress noted.
--- NOTE | 2019-12-27 19:00 | NUR ---
Pt requesting quietly, respirations normal, no s/s of distress.
--- NOTE | 2019-12-27 19:25 | NUR ---
[place] given per pt request.
[2019-12-27] MEDS: mirtazapine 15mg tablet PO SCH (20:10)
--- NOTE | 2019-12-27 21:29 | NUR ---
Pt requesting quietly, respirations normal, no s/s of distress.
--- NOTE | 2019-12-27 23:00 | NUR ---
Pt requesting quietly, respirations normal, no s/s of distress.
--- NOTE | 2019-12-28 00:02 | NUR ---
Pt requesting quietly, respirations normal, no s/s of distress.
--- NOTE | 2019-12-28 01:00 | NUR ---
Pt requesting quietly, respirations normal, no s/s of distress.
--- NOTE | 2019-12-28 02:00 | NUR ---
Pt requesting quietly, respirations normal, no s/s of distress.
--- NOTE | 2019-12-28 03:00 | NUR ---
Pt requesting quietly, respirations normal, no s/s of distress.
--- NOTE | 2019-12-28 04:01 | NUR ---
Pt requesting quietly, respirations normal, no s/s of distress.
--- NOTE | 2019-12-28 05:00 | NUR ---
Pt up to the restroom.
--- NOTE | 2019-12-28 07:59 | NUR ---
PT IS GIVEN BREAKFAST TRAY AND IS EATING WHILE SITTING IN BED.
[2019-12-28] MEDS: sertraline 50mg tablet PO SCH (08:19)
--- NOTE | 2019-12-28 11:48 | NUR ---
PT GIVEN A SNACK PRIOR TO LUNCHES. NOW RESTING.
--- NOTE | 2019-12-28 14:10 | NUR ---
PT HAS EATEN LUNCH AND RESTING IN BED NOW.
--- NOTE | 2019-12-28 14:14 | NUR ---
PT AMB TO BATHROOM TO SHAVE AND BATHE.
--- NOTE | 2019-12-28 16:52 | NUR ---
PT SLEEPING NO S/S DISTRESS.
--- NOTE | 2019-12-28 17:48 | NUR ---
PT GIVEN SNACK OF JELLO AND CRACKERS.
--- NOTE | 2019-12-28 19:11 | NUR ---
Patient is sleeping quietly on his right side in bed. In view from nursing station.
[2019-12-28] MEDS: mirtazapine 15mg tablet PO SCH (20:37)
--- NOTE | 2019-12-28 21:05 | NUR ---
Patient is sleeping quietly on his right side.
--- NOTE | 2019-12-28 23:42 | NUR ---
Patient sleeping quietly on his right side in bed.
--- NOTE | 2019-12-29 01:15 | NUR ---
Patient sleeping quietly on his left side. Patient has self repositioned.
--- NOTE | 2019-12-29 03:30 | NUR ---
Patient sleeps quietly on his right side. In view from nursing station.
--- NOTE | 2019-12-29 04:57 | NUR ---
Patient sleeping, low fowlers position in bed. No distress.
--- NOTE | 2019-12-29 06:30 | NUR ---
ASSUMED CARE, PATIENT SLEEPING.
--- NOTE | 2019-12-29 07:30 | NUR ---
PATIENT SLEEPING, NO COMPLAINTS/DISTRESS NOTED.
--- NOTE | 2019-12-29 08:30 | NUR ---
EATING BREAKFAST, CALM/COOPERATIVE, NO NEEDS NOTED.
[2019-12-29] MEDS: sertraline 50mg tablet PO SCH (08:37)
--- NOTE | 2019-12-29 09:41 | NUR ---
PATIENT RESTING PEACEFULLY WITH EYES CLOSED.
--- NOTE | 2019-12-29 10:18 | NUR ---
BREAKING PRIMARY RN, PT IS LAYING ON HIS RIGHT SIDE EYES CLOSED, ASLEEP, REGULAR BREATHING PRESENT, NO NEEDS AT THIS TIME
--- NOTE | 2019-12-29 11:46 | NUR ---
PATIENT RESTING WITH EYES CLOSED, NO COMPLAINTS NOTED. HE WANTS TO KNOW THE PLAN.
--- NOTE | 2019-12-29 12:56 | NUR ---
pt is eating his lunch at this time,no distress noted.will cont to monitor.
--- NOTE | 2019-12-29 13:04 | NUR ---
Resting in a bed sleeping with blanket pulled all over his head, no complaints noted.
--- NOTE | 2019-12-29 14:55 | NUR ---
Up to BR, having loose stools and alot of foul flatulence.
--- NOTE | 2019-12-29 16:00 | NUR ---
Was made aware by [facility] that a 5150 hold is being re-signed for another 72 hours.
--- NOTE | 2019-12-29 17:30 | NUR ---
Patient resting in bed with eyes open. Will cont. to monitor.
--- NOTE | 2019-12-29 18:44 | NUR ---
Assumed care of pt from JOSE FRANCISCO Rodriguez. No changes to report. Agree with previous assessment. Pt sitting upright on bed, eating dinner at this time. In no apparent distress.
--- NOTE | 2019-12-29 20:25 | NUR ---
pt up watching movie.
[2019-12-29] MEDS: mirtazapine 15mg tablet PO SCH (20:48)
--- NOTE | 2019-12-29 22:29 | NUR ---
Pt resting comfortably at this time. In no distress.
--- NOTE | 2019-12-29 23:10 | NUR ---
Pt resting comfortably. No changes.
--- NOTE | 2019-12-30 00:44 | NUR ---
Pt resting comfortably. No changes.
--- NOTE | 2019-12-30 02:23 | NUR ---
Pt resting comfortably. No changes.
--- NOTE | 2019-12-30 03:31 | NUR ---
Pt resting comfortably. No changes.
--- NOTE | 2019-12-30 04:40 | NUR ---
Pt resting comfortably. No changes.
--- NOTE | 2019-12-30 05:55 | NUR ---
No new changes. Resting with eyes closed in POC.
[2019-12-30] MEDS: sertraline 50mg tablet PO SCH (08:56)
--- NOTE | 2019-12-30 19:34 | NUR ---
One to one with the patient to assess for severity of depressive symptoms and self harm risk. The patient reports, "I feel miserable. I have no family. I got arrested at the [facility] and at the library so I have burned my bridges. He was recently paroled to the [facility] in June of this year. He has no source of income and no housing. He reports continued suicidal with a plan to "jump off the [address] bridge into traffic" He has been quiet and cooperative.
[2019-12-30] MEDS: mirtazapine 15mg tablet PO SCH (20:11)
--- NOTE | 2019-12-30 20:35 | NUR ---
The patient appears to be sleeping. He has been cooperative and is happy he will be placed in an acute psychiataric facility.
--- NOTE | 2019-12-30 20:56 | NUR ---
PT LYING IN BED ON HIS RIGHT SIDE WITH BLANKET COVERING TO HIS CHEST. EYES OPEN. HE IS QUIET. SITTER AND RN WITHIN VIEW OF PT AAT.
--- NOTE | 2019-12-30 22:55 | NUR ---
The patient appears to be sleeping
--- NOTE | 2019-12-31 00:23 | NUR ---
The patient appears to be sleeping
--- NOTE | 2019-12-31 02:40 | NUR ---
The patient appears to be sleeping
--- NOTE | 2019-12-31 06:36 | NUR ---
Patient sleeping on right side. No distress observed. Continue to monitor.
--- NOTE | 2019-12-31 08:12 | NUR ---
Patient eating breakfast. No distress observed. Continue to monitor.
[2019-12-31] MEDS: sertraline 50mg tablet PO SCH (08:20)
--- NOTE | 2019-12-31 09:37 | NUR ---
Patient laying supine in bed awake. No distress observed. Continue to monitor.
--- NOTE | 2019-12-31 10:28 | NUR ---
Patient sleeping on right side. No distress observed. Continue to monitor.
--- NOTE | 2019-12-31 11:35 | NUR ---
Patient awake and calm even though their is chaos at the moment. Continue to monitor.
--- NOTE | 2019-12-31 12:54 | NUR ---
Patient to be sleeping on left side. No distress observed. Continue to monitor.
--- NOTE | 2019-12-31 13:02 | NUR ---
patient awake,on high fowlers.
--- NOTE | 2019-12-31 13:28 | NUR ---
patient consumed 100% of lunch.
[2019-12-31] MEDS ORDERED: sertraline 50mg tablet PO ONE (14:15)
--- NOTE | 2019-12-31 15:10 | NUR ---
Patient supine in bed. No distress observed. Continue to monitor.
--- NOTE | 2019-12-31 17:42 | NUR ---
Patient reading magazines reclining in his bed. No distress observed. Continue to monitor.
--- NOTE | 2019-12-31 18:45 | NUR ---
Client awake, sitting in bed. Dinner tray served.
--- NOTE | 2019-12-31 19:00 | NUR ---
Client is sitting up in bed, talking with staff. Expresses concern about discharge. Client describes himself as a "frequent flyer" in facilities in the [facility]. Stated,"I've been in [facility] 17 times." Client was discussing advantages and disadvantages of various facilities.
[2019-12-31] MEDS: mirtazapine 15mg tablet PO SCH (20:32)
--- NOTE | 2019-12-31 21:00 | NUR ---
Client is awake, compliant with meds. Denies pain or discomfort. Respirations even and unlabored.
--- NOTE | 2020-01-01 00:35 | NUR ---
Resting in bed, eye's closed. Resp even.
--- NOTE | 2020-01-01 02:00 | NUR ---
Resting on left side, eye's closed. Resp even.
--- NOTE | 2020-01-01 03:58 | NUR ---
Resting on left side, eye's closed. Resp even.
--- NOTE | 2020-01-01 05:50 | NUR ---
RONDA Modi took clients' VS. Client is cooperative. Client laying with eye's closed.
[2020-01-01 05:59] VITALS: BP 107/89
--- NOTE | 2020-01-01 06:25 | NUR ---
Patient sleeping supine. No distress observed. Continue to monitor.
--- NOTE | 2020-01-01 07:14 | NUR ---
40 minutes ago patient was moved from bed 21 to bed 23. Patient is not sleeping on left side. No distress observed. Continue to monitor.
[2020-01-01] MEDS ORDERED: sertraline 50mg tablet PO SCH (08:00)
--- NOTE | 2020-01-01 08:15 | NUR ---
Patient eating breakfast. No distress observed. Patient still states he is suicidal and depressed. Continue to monitor.
--- NOTE | 2020-01-01 10:32 | NUR ---
Patient sleeping on left side. No distress observed. Continue to monitor.
== END 2020-01-01 11:35 | disposition home or self-care (01) ==
LOC: ER 17:06
DX: R45.851 Suicidal ideations (principal); J45.909 Unspecified asthma, uncomplicated; F32.9 Major depressive disorder, single episode, unspecified; F15.90 Other stimulant use, unspecified, uncomplicated; Z72.89 Other problems related to lifestyle; Z98.890 Other specified postprocedural states; Z60.2 Problems related to living alone; Z59.0 Homelessness; Z79.899 Other long term (current) drug therapy
CPT/HCPCS: 36415; 80053; 80305; 80320; 81001; 85025; 99285

== ENCOUNTER 2020-04-07 16:42 | Emergency (ER) | payer MEDICAID ==
[~2020-04-07] VITALS: Ht 182.9 cm; Wt 66.9 kg
[~2020-04-07 16:42] MED LIST changes: +MIRT-66 PO; +MIRT15TA8 PO; -MIRT45TA83 PO; -SERT-153 PO; +SERT50TA10 PO; +TOP25T PO; +TRAZ-251 PO
[2020-04-07 18:10] LABS: BASOPHILS % (AUTO) 0.4 % (0-1); EOSINOPHILS % (AUTO) 0.4 % (0-6); HEMATOCRIT 36.7 % (42.0-52.0); HEMOGLOBIN 12.9 g/dl (14.0-17.9); LYMPHOCYTES # (AUTO) 1.6 X10'3 (1.1-4.8); LYMPHOCYTES % (AUTO) 14.4 % (21-51); MEAN CORPUSCULAR HEMOGLOBIN 31.2 PG (27.0-31.0); MEAN CORPUSCULAR VOLUME 88.9 FL (78-98); MEAN PLATELET VOLUME 7.8 FL (7.4-10.4); MONOCYTES # (AUTO) 0.9 X10'3 (0-0.9); MONOCYTES % (AUTO) 8.4 % (2-12); NEUTROPHILS # (AUTO) 8.3 X10'3 (1.8-7.7); NEUTROPHILS % (AUTO) 76.4 % (42-75); PLATELET COUNT 310 X10'3 (140-440); RED BLOOD COUNT 4.13 X10'6 (4.70-6.10); RED CELL DISTRIBUTION WIDTH 13.4 % (11.5-14.5); WHITE BLOOD COUNT 10.9 X10'3 (4.5-11.0)
[2020-04-07 18:23] LABS: ALANINE AMINOTRANSFERASE 199 U/L (12-78); ALBUMIN 4.1 G/DL (3.4-5.0); ALBUMIN/GLOBULIN RATIO 1.1 (1.1-1.5); ALKALINE PHOSPHATASE 115 IU/L (46-116); ANION GAP 10 (8-16); ASPARTATE AMINO TRANSFERASE 160 U/L (10-37); BILIRUBIN,TOTAL 0.9 MG/DL (0.1-1.0); BLOOD UREA NITROGEN 16 MG/DL (7-18); BUN/CREATININE RATIO 15.5 (5.4-32.0); CALCIUM 9.5 MG/DL (8.5-10.1); CHLORIDE 103 MMOL/L (99-107); CREATININE 1.03 MG/DL (0.60-1.10); ETHANOL < 0.010 GM/DL (0.0-0.010); GLUCOSE 113 MG/DL (70-104); POTASSIUM 3.3 MMOL/L (3.5-5.1); SODIUM 141 MMOL/L (135-145); TOTAL CARBON DIOXIDE 28.1 MMOL/L (24-32); TOTAL PROTEIN 7.7 G/DL (6.4-8.2); eGFR 77 ML/MIN
[2020-04-07] MEDS ORDERED: cephalexin 250mg capsule PO ONE (18:25)
[2020-04-07 18:28] LABS: URINE AMPHETAMINE SCREEN POSITIVE (Neg); URINE BARBITUATE SCREEN NEGATIVE (Neg); URINE BENZODIAZEPINES SCREEN NEGATIVE (Neg); URINE CANNABINOID SCREEN NEGATIVE (Neg); URINE COCAINE SCREEN NEGATIVE (Neg); URINE METHADONE SCREEN NEGATIVE (Neg); URINE OPIATE SCREEN NEGATIVE (Neg); URINE PHENCYCLIDINE SCREEN NEGATIVE (Neg)
--- NOTE | 2020-04-07 18:30 | NUR ---
pt seen by pa
[2020-04-07] MEDS ORDERED: MIRT-116 PO (19:04)
[2020-04-07] MEDS ORDERED: SERT50TA PO (19:04)
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
[2020-04-07] MEDS ORDERED: mirtazapine 15mg tablet PO SCH (21:00)
--- NOTE | 2020-04-07 22:09 | NUR ---
pt ambulated up to bathroom without issue and then returned back to bed
--- NOTE | 2020-04-07 23:58 | NUR ---
PATIENT MOVED FROM OVERFLOW TO BED #11 DUE TO STAFF SHORTAGE
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
[2020-04-08] MEDS ORDERED: LORazepam 1 MG tablet PO ONE ×2 (04:00→04:10)
--- NOTE | 2020-04-08 04:14 | NUR ---
pt continues to act erratic and paranoid. is seen sitting on the floor, laying under the bed, and states "I only have a few more hours and then i'll be safe. theyre trying to get me." pt affect is anxious and tangential with pressured speech. informed edmd lydia of pt behaviors and received verbal order for 2mg ativan po x1 dose now. order placed as received. pt is agreeable to taking po medication at this time and took without issue.
--- NOTE | 2020-04-08 06:41 | NUR ---
Assumed care of patient. Patient resting calm and quite in bed. Eyes closed, lights dimmed. No needs at this time.
[2020-04-08] MEDS ORDERED: cephalexin 250mg capsule PO SCH (08:00)
[2020-04-08] MEDS ORDERED: sertraline 50mg tablet PO SCH (08:00)
--- NOTE | 2020-04-08 08:52 | NUR ---
Patient awake and calm and cooperative. Patient ate breakfast and ambulated to restroom with steady gait. Patient states he is very anxious about where and what he is going to do and live when he gets out of here. Patient reports he still feels and is having thoughts of wanting to jump in front of bus/car.
--- NOTE | 2020-04-08 09:22 | NUR ---
Patient moved to Overflow, self amulated. Report to Violeta FELTON.
--- NOTE | 2020-04-08 09:25 | NUR ---
PATIENT TO ROOM 23 ON HIS BED FROM MAIN ER. PATIENT HAS A PLEASANT DEMEANOR AND DENIES SI/HI.
--- NOTE | 2020-04-08 10:15 | NUR ---
DR GALINDO IN PATIENT'S ROOM TO VISUALIZE PATIENT'S WOUNDS
[2020-04-08] MEDS ORDERED: mupirocin 2% ointment 22GM TP ONE (10:30)
--- NOTE | 2020-04-08 11:52 | NUR ---
MARITZA ELLISSTA [facility] IN ROOM WITH PATIENT
--- NOTE | 2020-04-08 12:23 | NUR ---
ROCÍO SUPERVISOR BENZENE REFINING AT BEDSIDE
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
[2020-04-08] MEDS ORDERED: CEPH500C5 PO (13:05)
--- NOTE | 2020-04-08 13:10 | NUR ---
PATIENT AND I DISCUSSED HIS PARTICIPATION IN 12 STEP PROGRAMS. HE STATES THAT HE WILL RETURN TO [facility]. HE STATED THAT HE KNOWS HE HAS TO START TO TAKE RESPONSIBILITY FOR HIS OWN LIFE. HE WAS AT A 90 DAY REHAB AND RETURNED LAST Sunday04/01/20 AND WAS PROVIDED A HOTEL ROOM BY [facility]. HE STATES THAT HE REGRETS "MESSIN UP" THE HOTEL ROOM. HE IS STILL COMPLAINING THAT HE DOES NOT HAVE HIS CELL PHONE. I REMINDED HIM THAT HE DID NOT HAVE WHEN HE ARRIVED HERE. HE CALLED HIS CELL NUMBER AND IT WORKED.
--- NOTE | 2020-04-08 13:21 | NUR ---
PATIENT IS NOT ALLOWED AT THE [facility] AT THIS TIME
--- NOTE | 2020-04-08 13:30 | NUR ---
PATIENT PROVIDED GAUZE AND TAPE FOR HIS WOUNDS. PATIENT IS GETTING DRESSED AT THIS TIME. PATIENT APOLOGIZED FOR HIS ATTITUDE EARLIER. PATIENT IS AWARE THAT HE CURRENTLY HAS MEDICAL. PATIENT PROVIDED PRESCRIPTION FOR KEFLEX BID FOR HIS SKIN WOUNDS. PATIENT VERBALIZED THAT HE WILL GET THE PRESCRIPTION FILLED AND TAKE IT TWICE A DAY.
--- NOTE | 2020-04-08 13:38 | NUR ---
[facility] CALLED FOR RIDE TO [address] [place] [address] TO SEE MR BARNES HIS PEDIATRIC ONCOLOGY NURSE. 30 MINUTES
[2020-04-08 13:39] VITALS: BP 143/90
--- NOTE | 2020-04-08 14:33 | NUR ---
CALLED [facility] AGAIN PATIENT ESCORTED TO ER [facility] AT THIS TIME
[2020-04-09] MEDS ORDERED: SULF1TAB49 PO (17:08)
== END 2020-04-08 14:34 | disposition home or self-care (01) ==
LOC: ER 16:44
DX: S00.81XA Abrasion of other part of head, initial encounter (principal); S40.812A Abrasion of left upper arm, initial encounter; S40.811A Abrasion of right upper arm, initial encounter; S80.812A Abrasion, left lower leg, initial encounter; S80.811A Abrasion, right lower leg, initial encounter; S40.212A Abrasion of left shoulder, initial encounter; L03.114 Cellulitis of left upper limb; T43.622A Poisoning by amphetamines, intentional self-harm, initial encounter; F60.0 Paranoid personality disorder; L03.90 Cellulitis, unspecified; J45.909 Unspecified asthma, uncomplicated; F32.9 Major depressive disorder, single episode, unspecified; F15.90 Other stimulant use, unspecified, uncomplicated; Z98.890 Other specified postprocedural states; Z72.89 Other problems related to lifestyle; Z56.0 Unemployment, unspecified; Z79.2 Long term (current) use of antibiotics; Z79.899 Other long term (current) drug therapy; Y92.89 Other specified places as the place of occurrence of the external cause; Y99.8 Other external cause status
CPT/HCPCS: 36415; 80053; 80305; 80320; 85025; 99285

== ENCOUNTER 2020-04-09 16:07 | Emergency (ER) | payer MEDICAID ==
[~2020-04-09] VITALS: Ht 182.9 cm; Wt 70.0 kg
[~2020-04-09 16:07] MED LIST changes: +CEPH500C5 PO; +MIRT-116 PO; -MIRT-66 PO; -MIRT15TA8 PO; +SERT50TA PO; -SERT50TA10 PO; -TOP25T PO; -TRAZ-251 PO
[2020-04-09] MEDS ORDERED: SULF1TAB49 PO (17:08)
--- NOTE | 2020-04-09 17:11 | NUR ---
Pt ambulatory to the restroom to void, is providing a urine specimen.
[2020-04-09 17:31] LABS: BASOPHILS # (AUTO) 0.1 X10'3 (0-0.2); BASOPHILS % (AUTO) 0.8 % (0-1); EOSINOPHILS # (AUTO) 0.1 X10'3 (0-0.9); EOSINOPHILS % (AUTO) 1.5 % (0-6); HEMOGLOBIN 12.8 g/dl (14.0-17.9); LYMPHOCYTES # (AUTO) 2.3 X10'3 (1.1-4.8); LYMPHOCYTES % (AUTO) 27.1 % (21-51); MEAN CORPUSCULAR HEMOGLOBIN 30.8 PG (27.0-31.0); MEAN CORPUSCULAR HGB CONC 34.7 g/dL (33.0-36.5); MEAN CORPUSCULAR VOLUME 88.5 FL (78-98); MEAN PLATELET VOLUME 7.8 FL (7.4-10.4); MONOCYTES # (AUTO) 1.1 X10'3 (0-0.9); MONOCYTES % (AUTO) 13.4 % (2-12); NEUTROPHILS # (AUTO) 4.8 X10'3 (1.8-7.7); NEUTROPHILS % (AUTO) 57.2 % (42-75); PLATELET COUNT 343 X10'3 (140-440); RED BLOOD COUNT 4.18 X10'6 (4.70-6.10); RED CELL DISTRIBUTION WIDTH 13.2 % (11.5-14.5); WHITE BLOOD COUNT 8.5 X10'3 (4.5-11.0)
[2020-04-09 17:44] LABS: URINE AMPHETAMINE SCREEN NEGATIVE (Neg); URINE BARBITUATE SCREEN NEGATIVE (Neg); URINE BENZODIAZEPINES SCREEN NEGATIVE (Neg); URINE CANNABINOID SCREEN NEGATIVE (Neg); URINE COCAINE SCREEN NEGATIVE (Neg); URINE METHADONE SCREEN NEGATIVE (Neg); URINE OPIATE SCREEN NEGATIVE (Neg); URINE PHENCYCLIDINE SCREEN NEGATIVE (Neg)
[2020-04-09 17:48] LABS: ALANINE AMINOTRANSFERASE 134 U/L (12-78); ALBUMIN 4.1 G/DL (3.4-5.0); ALBUMIN/GLOBULIN RATIO 1.1 (1.1-1.5); ALKALINE PHOSPHATASE 99 IU/L (46-116); ANION GAP 14 (8-16); ASPARTATE AMINO TRANSFERASE 58 U/L (10-37); BILIRUBIN,TOTAL 0.9 MG/DL (0.1-1.0); BLOOD UREA NITROGEN 14 MG/DL (7-18); BUN/CREATININE RATIO 12.2 (5.4-32.0); CALCIUM 9.1 MG/DL (8.5-10.1); CHLORIDE 100 MMOL/L (99-107); CREATININE 1.15 MG/DL (0.60-1.10); ETHANOL < 0.010 GM/DL (0.0-0.010); GLUCOSE 85 MG/DL (70-104); SODIUM 136 MMOL/L (135-145); TOTAL CARBON DIOXIDE 22.2 MMOL/L (24-32); TOTAL PROTEIN 7.8 G/DL (6.4-8.2); eGFR 68 ML/MIN
--- NOTE | 2020-04-09 18:16 | NUR ---
Pt given a meal tray, is sitting upright on the bed eating. Pt is pending orders for oral potassium replacement. Oxana SAEZ faxed the packet to [facility] office.
--- NOTE | 2020-04-09 18:35 | NUR ---
yonas removed all bandages on wounds and began picking at them he reports they itch advised not to pull scabs off. Patient stopped picking at scabs. Dr Melendez aware gave verbal order for bactroban to be applied.
[2020-04-09] MEDS ORDERED: potassium Cl 20 mEq SR tablet PO ONE (18:40)
[2020-04-09] MEDS: mupirocin 2% ointment 22GM TP SCH (21:09)
[2020-04-09] MEDS: sulfamethoxazole/trimethoprim DS (800/160mg) tablet PO SCH (21:09)
[2020-04-09] MEDS ORDERED: ibuprofen tablet 400 MG TABLET PO ONE (21:30)
[2020-04-09] MEDS ORDERED: ibuprofen 200mg tablet PO ONE (21:30)
--- NOTE | 2020-04-09 21:33 | NUR ---
sung request medication for foot pain, specifically "Toradol" patient advised I would call MD and look at recent labs with MD to make best decision based on labs. Dr Melendez notified of patient complaints of foot pain. Later patient rated 10/10 describes like tingling and burning reports unable to differentiate whether it is from the wounds or not. flat affect stoic facial expressions.
[2020-04-09] MEDS ORDERED: mirtazapine 15mg tablet PO ONE ×2 (22:20→22:35)
--- NOTE | 2020-04-09 22:30 | NUR ---
RESTLESS LEGS NOTED. PATIENT EYES CLOSED NO COMPLAINTS
--- NOTE | 2020-04-09 23:30 | NUR ---
RIGHT SIDE, EUPNEIC RESPIRATIONS.
--- NOTE | 2020-04-10 00:02 | NUR ---
[facility] CALLED AND ASKED IF HEIDI NEEDED PERMANANT PLACEMENT SHE RECEIVED A PACKET ON THIS PATIENT. SHE WAS ADVISED THAT HE DID SHE ADVISED SHE WOULD START LOOKING FOR PLACEMENT AND VERIFIED NUMBER FOR NURSE TO NURSE REPORT WHEN SHE FINDS A BED. ADVISEMENT OF YES WAS GIVEN. NO RETURN CALL IS NECESSARY AT THIS TIME FROM [facility].
--- NOTE | 2020-04-10 00:30 | NUR ---
SLEEPING NO SIGNS OF DISTRESS, EVEN AND UNLABORED RESPIRATIONS
--- NOTE | 2020-04-10 01:45 | NUR ---
EVEN AND UNLABOED RESPIRATION, NO SOGN OF DISTRESS. Addendum: 04/10/20 at 0145 by ANNETTE SIGN NOT SOGN
--- NOTE | 2020-04-10 02:43 | NUR ---
SUPINE, EVEN AND UNLABORED RESPIRATIONS.
--- NOTE | 2020-04-10 03:30 | NUR ---
Resting no complaints or cnges at this time.
--- NOTE | 2020-04-10 04:56 | NUR ---
uneventful night, cooperative, no further complaints of foot pain
--- NOTE | 2020-04-10 06:43 | NUR ---
PT SLEEPING IN NO OBVIOUS DISTRESS.
[2020-04-10] MEDS: mupirocin 2% ointment 22GM TP SCH ×3 (08:00→20:12)
[2020-04-10] MEDS: sulfamethoxazole/trimethoprim DS (800/160mg) tablet PO SCH ×2 (08:05→20:06)
[2020-04-10] MEDS: sertraline 50mg tablet PO SCH (08:05)
[2020-04-10] MEDS ORDERED: ibuprofen tablet 400 MG TABLET PO ONE (13:05)
--- NOTE | 2020-04-10 13:41 | NUR ---
resting comfortably on right side.
--- NOTE | 2020-04-10 19:00 | NUR ---
Pt is resting in bed, eats his dinner
[2020-04-10] MEDS: lactobacillus rhamnosus 10,000 MMU CELLS/CAPSULE PO SCH (20:06)
[2020-04-10] MEDS ORDERED: mirtazapine 15mg tablet PO SCH ×2 (21:00)
[2020-04-10] MEDS ORDERED: POTASSIUM BICARB 20meq eff tab 20 MEQ TABLET.EFF PO ONE (22:55)
--- NOTE | 2020-04-10 23:13 | NUR ---
PTS POTASSIUM 3.0, consulted with Dr. Louie , 40 MEQ Effer- K prescribed and given to pt, pt tolerated well.
--- NOTE | 2020-04-11 00:53 | NUR ---
Pt asleep on R side respirations WNL, even and unlabored
--- NOTE | 2020-04-11 04:28 | NUR ---
pt asleep on R side breaths WNL
[2020-04-11] MEDS ORDERED: acetaminophen 325mg tablet PO ONE (04:50)
[2020-04-11 05:09] VITALS: BP 103/67
--- NOTE | 2020-04-11 07:00 | NUR ---
Pt is medication compliant
--- NOTE | 2020-04-11 08:09 | NUR ---
Pt is medication compliant
[2020-04-11] MEDS: sulfamethoxazole/trimethoprim DS (800/160mg) tablet PO SCH (08:23)
[2020-04-11] MEDS: sertraline 50mg tablet PO SCH (08:23)
[2020-04-11] MEDS: mupirocin 2% ointment 22GM TP SCH (08:23)
[2020-04-11] MEDS: lactobacillus rhamnosus 10,000 MMU CELLS/CAPSULE PO SCH (08:23)
--- NOTE | 2020-04-11 09:00 | NUR ---
pt is resting in his room. no issues
[2020-04-11 09:29] LABS: CLARITY,URINE CLEAR (Clear); COLOR,URINE YELLOW (Yellow); GLUCOSE, URINE NEGATIVE (Neg); KETONES,URINE NEGATIVE (Neg); LEUKOCYTE ESTERASE ,URINE NEGATIVE (Neg); NITRITES, URINE NEGATIVE (Neg); OCCULT BLOOD,URINE TRACE-LYSED (Neg); PROTEIN,URINE NEGATIVE (Neg)
[2020-04-11 09:32] LABS: UA COLLECTION TYPE CLN CATCH MIDSTREAM
[2020-04-11 09:35] LABS: BACTERIA,URINE NONE SEEN /HPF (Neg); MUCUS STRANDS MANY /LPF (Neg); RBC,URINE 0-2 /HPF (0-2); SQUAMOUS EPITHELIAL CELL,UR NONE SEEN /LPF (FEW); WBC,URINE 0-4 /HPF (0-4)
[2020-04-11 09:36] LABS: HYALINE CASTS 0-3 /LPF (NEGATIVE)
--- NOTE | 2020-04-11 10:00 | NUR ---
pt is resting in his room. no issues
--- NOTE | 2020-04-11 11:00 | NUR ---
pt is resting in his room. no issues
--- NOTE | 2020-04-11 12:00 | NUR ---
pt asking about his placement and 5150 expiring date. pt is getting upset that he could be released tomorrow. states he has "no place to go and that we just dont care about him"
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
[2020-04-11] MEDS ORDERED: LORazepam 1 MG tablet PO ONE (15:05)
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
--- NOTE | 2020-04-11 16:05 | NUR ---
PT IS MAKING THREATENING STATEMENT TOWARDS NURSING STAFF.
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
--- NOTE | 2020-04-11 17:08 | NUR ---
STATEMENT MADE TO LORE
== END 2020-04-11 16:37 ==
LOC: ER 16:07
DX: R45.851 Suicidal ideations (principal); E87.6 Hypokalemia; J45.909 Unspecified asthma, uncomplicated; F32.9 Major depressive disorder, single episode, unspecified; F15.90 Other stimulant use, unspecified, uncomplicated; Z98.890 Other specified postprocedural states; Z72.89 Other problems related to lifestyle; Z60.2 Problems related to living alone; Z59.0 Homelessness; Z79.2 Long term (current) use of antibiotics; Z79.899 Other long term (current) drug therapy
CPT/HCPCS: 36415; 80053; 80305; 80320; 81001; 85025; 99285

== ENCOUNTER 2023-01-10 05:26 | Emergency (ER) | payer MEDICAID ==
[~2023-01-10] VITALS: Ht 175.3 cm; Wt 63.6 kg
[~2023-01-10 05:26] MED LIST changes: -CEPH500C5 PO; -MIRT-116 PO; +SULF1TAB49 PO
--- NOTE | 2023-01-10 06:06 | NUR ---
PATIENT VERBALIZED THEY DO NOT WANT TO BE IN BED #15 JAMAR AND WOULD LIKE TO GO OUT AND WAIT IN LOBBY, PATIENT IS NOT ON A HOLD PATIENT WAS MOVED TO LOBBY TO WAIT FOR NEW ROOM NOT #15
[2023-01-10] MEDS ORDERED: LORazepam 2 mg/ml vial IM ONE (07:00)
[2023-01-10] MEDS ORDERED: haloperidol decanoate***LONG-ACTING*** 100mg/ml **IM only** inj. IM ONE (07:00)
[2023-01-10] MEDS ORDERED: diphenhydrAMINE 50 mg/ml inj IM ONE (07:00)
[2023-01-10] MEDS ORDERED: haloperidol lactate 5mg/ml inj IM ONE (07:05)
[2023-01-10 07:45] LABS: BASOPHILS % (AUTO) 0.1 % (0-1); EOSINOPHILS % (AUTO) 0 % (0-6); HEMATOCRIT 38.1 % (42.0-52.0); HEMOGLOBIN 12.9 g/dl (14.0-17.9); LYMPHOCYTES # (AUTO) 0.8 X10'3 (1.1-4.8); LYMPHOCYTES % (AUTO) 4.9 % (21-51); MEAN CORPUSCULAR VOLUME 91.3 FL (78-98); MEAN PLATELET VOLUME 7.9 FL (7.4-10.4); MONOCYTES % (AUTO) 5.9 % (2-12); NEUTROPHILS # (AUTO) 14.5 X10'3 (1.8-7.7); NEUTROPHILS % (AUTO) 89.1 % (42-75); PLATELET COUNT 274 X10'3 (140-440); RED BLOOD COUNT 4.17 X10'6 (4.70-6.10); RED CELL DISTRIBUTION WIDTH 13.9 % (11.5-14.5); WHITE BLOOD COUNT 16.3 X10'3 (4.5-11.0)
[2023-01-10 08:13] LABS: ALANINE AMINOTRANSFERASE 30 U/L (12-78); ALBUMIN 4.5 G/DL (3.4-5.0); ALBUMIN/GLOBULIN RATIO 1.5 (1.1-1.5); ALKALINE PHOSPHATASE 48 IU/L (46-116); ANION GAP 12 (8-16); ASPARTATE AMINO TRANSFERASE 41 U/L (10-37); BILIRUBIN,TOTAL 0.7 MG/DL (0.1-1.0); BLOOD UREA NITROGEN 10 MG/DL (7-18); BUN/CREATININE RATIO 7.9 (10.0-20.0); CALCIUM 9.5 MG/DL (8.5-10.1); CHLORIDE 105 MMOL/L (99-107); CREATININE 1.27 MG/DL (0.60-1.10); GLUCOSE 127 MG/DL (70-104); POTASSIUM 3.7 MMOL/L (3.5-5.1); SODIUM 140 MMOL/L (135-145); TOTAL CARBON DIOXIDE 22.9 MMOL/L (24-32); TOTAL PROTEIN 7.6 G/DL (6.4-8.2); eCRCL 63 ML/MIN; eGFR 60 ML/MIN
[2023-01-10 08:26] LABS: ETHANOL < 10 MG/DL (<10); SALICYLATE 0.5 MG/DL (4.0-20.0); THYROID STIMULATING HORMONE 0.71 ulU/ml (0.34-4.50)
[2023-01-10 08:36] LABS: ACETAMINOPHEN < 2.0 UG/ML (10-30)
--- NOTE | 2023-01-10 08:42 | NUR ---
Pt resting on bed with eyes closed. No acute distress noted at this time.
--- NOTE | 2023-01-10 09:20 | NUR ---
Patient sitting up in bed and picking at his breakfast. No distress observed. Continue to monitor.
[2023-01-10 09:39] VITALS: BP 115/71; PULSE 113; RESP 16; TEMP 98; O2SAT 98
--- NOTE | 2023-01-10 11:36 | NUR ---
Patient up and going to BR to give a urine sample. No distress observed. Continue to monitor.
[2023-01-10 12:08] LABS: BILIRUBIN,URINE NEGATIVE (Neg); CLARITY,URINE SLIGHTLY CLOUDY (Clear); COLOR,URINE YELLOW (Yellow); GLUCOSE, URINE NEGATIVE (Neg); KETONES,URINE 40 mg/dl (Neg); LEUKOCYTE ESTERASE ,URINE NEGATIVE (Neg); NITRITES, URINE NEGATIVE (Neg); OCCULT BLOOD,URINE TRACE-LYSED (Neg); PROTEIN,URINE 30 mg/dl (Neg); UROBILINOGEN,URINE 0.2 E.U/dL (0.2-1.0)
[2023-01-10 12:09] LABS: UA COLLECTION TYPE VOIDED
[2023-01-10 12:25] LABS: BACTERIA,URINE NONE SEEN /HPF (Neg); SQUAMOUS EPITHELIAL CELL,UR FEW /LPF (FEW); WBC,URINE 0-4 /HPF (0-4)
[2023-01-10 12:26] LABS: HYALINE CASTS 0-3 /LPF (NEGATIVE); MUCUS STRANDS FEW /LPF (Neg); SPERM FEW /HPF (NEGATIVE); URINE AMPHETAMINE SCREEN POSITIVE (Neg); URINE BARBITUATE SCREEN NEGATIVE (Neg); URINE BENZODIAZEPINES SCREEN NEGATIVE (Neg); URINE CANNABINOID SCREEN NEGATIVE (Neg); URINE COCAINE SCREEN NEGATIVE (Neg); URINE METHADONE SCREEN NEGATIVE (Neg); URINE OPIATE SCREEN NEGATIVE (Neg); URINE PHENCYCLIDINE SCREEN NEGATIVE (Neg)
--- NOTE | 2023-01-10 13:40 | NUR ---
Patient sleeping on his right side. Nonlabored respirations. No distress observed. Continue with patient's plan of care.
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
== END 2023-01-10 16:20 | disposition home or self-care (01) ==
LOC: ER 05:27
DX: R45.851 Suicidal ideations (principal); F20.9 Schizophrenia, unspecified; F15.10 Other stimulant abuse, uncomplicated; Z20.822 Contact with and (suspected) exposure to COVID-19; F31.9 Bipolar disorder, unspecified
CPT/HCPCS: 36415; 80053; 80305; 80320; 80329; 81001; 84443; 85025; 87811; 96372; 99285; J1200; J1630; J2060

== ENCOUNTER 2023-02-05 09:13 | Emergency (ER) | payer MEDICAID ==
[~2023-02-05] VITALS: Ht 185.4 cm; Wt 70.0 kg
[2023-02-05 09:30] VITALS: BP 117/71; PULSE 83; RESP 18; TEMP 98; O2SAT 98
== END 2023-02-05 12:19 | disposition left against medical advice (07) ==
LOC: ER 09:13
DX: M54.9 Dorsalgia, unspecified (principal); Z53.21 Procedure and treatment not carried out due to patient leaving prior to being seen by health care provider
CPT/HCPCS: 99281